=== PATIENT | female | born 1950 | race Caucasian/White ===

== ENCOUNTER → 2018-11-22 | Outpatient (CLI) | payer MEDICARE, OTHER ==
[~2018-11-22] MED LIST: ALB0.5 INH; IBU200 PO; VENL75CA58 PO
--- NOTE | 2018-11-22 11:53 | RADIOLOGY IMAGING REPORT ---
FACILITY: [facility] - [place] PATIENT NAME: Pushpa Dickerson : 1950 MR: [id number] V: [id number] EXAM DATE: ORDERING PHYSICIAN: MEGAN KRISHNAMURTHY TECHNOLOGIST: Location: [facility] [place] Patient: Pushpa Dickerson : 1950 Visit/Account:[id number] Date of Sevice: 11/22/2018 Exam type: SHOULDER MIN 2 VIEWS LEFT History: Bump on deltoid muscle of left arm Comparison: None. Findings: Four views of the left shoulder were submitted. There is no evidence of acute fracture or dislocatio n involving the left shoulder. There are mild degenerative changes at the left AC joint. No radiopa que soft tissue mass or foreign body is identified. Incompletely imaged are postsurgical changes of the lower cervical spine IMPRESSION: 1. No acute osteoarticular abnormality the left shoulder seen. If a mass remains of strong clinical concern MR may be helpful Report Dictated By: Tatiana Horvath MD at 11/22/2018 11:46 AM Report E-Signed By: Tatiana Horvath MD at 11/22/2018 11:48 AM WSN:[email or web address]
== END ==
LOC: RAD 09:14
PROVIDERS: ATTEND Orthopaedic Surgery
DX: M25.512 Pain in left shoulder (principal)